=== PATIENT | female | born 1985 | race Caucasian/White ===

== ENCOUNTER 2016-10-27 10:27 | Emergency (ER) | payer SELFPAY ==
[~2016-10-27] VITALS: Ht 152.4 cm; Wt 61.7 kg
[2016-10-27 10:40] VITALS: BP 127/77
--- NOTE | 2016-10-27 15:30 | NUR ---
30F BIB SELF C/O THROBBING ANTERIOR FOREHEAD PAIN, RADIATES TO BL EYES, 7/10 X 1 WEEK; PT DENIES TRAUMA OR INJURY TO HEAD; PT DENIES BLURRY VISION OR VISION CHANGES AT THIS TIME; PT C/O NAUSEA, BUT DENIES V/D AT THIS TIME; ABDOMEN SOFT, FLAT, NON-TENDER, ACTIVE BOWEL SOUNDS X 4 QUADRANTS; A&OX4, PERRLA, BL LUNG SOUNDS CLEAR, RR EVEN/UNLABORED, SKIN IS WARM/DRY/INTACT AT THIS TIME; PT RESTING IN BED W/ HOB ELEVATED AND IN LOWEST POSITION; POSITIONED FOR COMFORT; ER MD MADE AWARE OF STATUS. WILL CONTINUE TO MONITOR.
[2016-10-27] MEDS ORDERED: NACL 0.9% 1,000 ML IV ONE (15:45)
[2016-10-27] MEDS ORDERED: diphenhydrAMINE 50 MG/ML VIAL IVP ONE (15:45)
[2016-10-27] MEDS ORDERED: PROCHLORPERAZINE 10 MG/2 ML VIAL IVP ONE (15:45)
[2016-10-27] MEDS ORDERED: SUMAtriptan 6 MG/0.5 ML VIAL SUBQ ONE (15:45)
--- NOTE | 2016-10-27 15:57 | NUR ---
Sanjuanita contreras in ED - 10/27/16 at 1637 by JAJA PT TAKEN TO CT VIA W/C ACCOMPANIED BY MICROMATIC HONE OPERATOR.
--- NOTE | 2016-10-27 16:50 | NUR ---
IV removed, catheter intact and site benign. Applied folded 4x4 gauze and tape to stop bleeding. PT TOLERATED PROCEDURE WELL.
[2016-10-27 16:56] VITALS: BP 120/75
--- NOTE | 2016-10-27 16:56 | NUR ---
Patient discharged with v/s stable. Written and verbal after care instructions given and explained. Patient alert, oriented and verbalized understanding of instructions. Ambulatory with steady gait. All questions addressed prior to discharge. ID band removed. Patient advised to follow up with PMD. Rx of IMITREX 25MG TAB given. Patient educated on indication of medication including possible reaction and side effects. Opportunity to ask questions provided and answered.
== END 2016-10-27 16:56 | disposition home or self-care (01) ==
LOC: MED 10:27
DX: G43.909 Migraine, unspecified, not intractable, without status migrainosus (principal)
CPT/HCPCS: 96361; 96372; 96374; 96375; 99284; J0780; J1200; J3030; J7030